=== PATIENT | male | born 1985 | race African-American/Black ===

== ENCOUNTER 2025-07-10 13:18 | Emergency (ER) | payer OTHER ==
--- NOTE | 2025-07-10 14:54 | RAD REPORT ---
EXAMINATION: XR LEFT KNEE CLINICAL INDICATION: PAIN TECHNIQUE: Multiple projections of the left knee were obtained. COMPARISON: No prior exam. FINDINGS: There is a large suprapatellar joint effusion. Moderate patellofemoral and medial compartme nt space narrowing is present with osteophytosis. No acute fracture or dislocation.
--- NOTE | 2025-07-10 15:04 | EDPHYS ---
Physician Documentation [facility] Name: Pedro Stallings Age: 39 yrs Sex: Male : 1985 Arrival Date: 07/10/2025 Time: 13:18 Bed 11 Private MD: ED Physician Zay Allen HPI: 07/10 15:04 This 39 yrs old Black Male presents to ER via Ambulatory with complaints of Knee Pain - kb SWELLING. 15:04 Patient is a 39-year-old male who presents for left knee pain and swelling that started kb 2 months ago. States he was carrying a heavy pipe and felt a pop in his knee 2 months ago. States has had intermittent swelling and pain since then. Denies any new injury or trauma.. Historical: - Allergies: 13:40 No Known Allergies; dd2 - PMHx: 13:40 None; dd2 - PSHx: 13:40 None; dd2 - Immunization history:: Adult Immunizations unknown. - Infectious Disease History:: Denies. - Social history:: Smoking status: Patient reports the use of cigarette tobacco products, cigars. ROS: 15:04 Constitutional: As per HPI kb Exam: 15:04 Constitutional: This is a well developed, well nourished patient who is awake, alert, kb and in no acute distress. Head/Face: Normocephalic, atraumatic. ENT: Moist Mucous membranes Respiratory: Respirations even and unlabored. No increased work of breathing. Talking in full sentences Skin: Warm, dry with normal turgor. Normal color. Neuro: Awake and alert, GCS 15, oriented to person, place, time, and situation. 15:04 Musculoskeletal/extremity: Extremities: grossly normal except: noted in the left knee: pain, swelling, tenderness, ROM: intact in all extremities, Circulation is intact in all extremities. Sensation intact. Weight bearing: able to fully bear weight, Vital Signs: 13:37 BP 129 / 74; Pulse 81; Resp 16; Temp 98; Pulse Ox 98% ; Weight 117.93 kg; Height 6 ft. dd2 0 in. ; Pain 8/10; 13:37 Body Mass Index 35.26 (117.93 kg, 182.88 cm) dd2 13:37 Pain Scale: Adult dd2 MDM: 13:30 Medical Screening Exam initiated kb 15:04 Differential diagnosis: fracture, sprain, strain. Data reviewed: vital signs, nurses kb notes. Independent interpretation of the following test(s) in the Emergency Department X-Ray: My interpretation is no acute fracture. Counseling: I had a detailed discussion with the patient and/or guardian regarding the historical points, exam findings, and any diagnostic results supporting the discharge/admit diagnosis, radiology results, the need for outpatient follow up, a orthopedic surgeon, to return to the emergency department if symptoms worsen or persist or if there are any questions or concerns that arise at home. 07/10 13:43 Order name: Knee Left 3 View XRAY; Complete Time: 14:56 kb Administered Medications: No medications were administered Disposition: 16:44 Co-signature as Attending Physician, Zay Allen MD I reviewed the patient's care rn provided by the Advanced Practice Provider and agree with the diagnosis and treatment plan. Disposition Summary: 07/10/25 15:03 Discharge Ordered Notes: Location: Home kb Condition: Stable kb Diagnosis - Pain in left knee kb - Effusion, knee kb Followup: kb - With: Emergency Department - When: As needed - Reason: Worsening of condition Followup: kb - With: Private Physician - When: 2 - 3 days - Reason: Recheck today's complaints, Continuance of care, Re-evaluation by your physician Discharge Instructions: - Discharge Summary Sheet kb - Knee Effusion, [id number] kb - Knee Sprain, Adult, [id number] kb Forms: - Medication Reconciliation Form kb - Antibiotic Education kb - Prescription Opioid Use kb - Patient Portal Instructions kb - Leadership Thank You Letter kb Prescriptions: - Ibuprofen 800 mg Oral Tablet - take 1 tablet ORAL route every 8 hours As needed take with food; 30 tablet; kb Refills: 0, Product Selection Permitted Signatures: Dispatcher [employer] EDMS Sharlene Moreira, BARREL STAVE INSPECTOR-C BARREL STAVE INSPECTOR-Zay Espino MD MD rn DAVIS, DIANA, RN RN dd2 Corrections: (The following items were deleted from the chart) 13:43 13:43 Knee Left 3 View+RAD.RAD.BRZ ordered. EDUT EDMS
--- NOTE | 2025-07-10 15:04 | ER ---
Nurse's Notes [facility] Name: Pedro Stallings Age: 39 yrs Sex: Male : 1985 Arrival Date: 07/10/2025 Time: 13:18 Bed 11 Private MD: Diagnosis: Pain in left knee;Effusion, knee Presentation: 07/10 13:37 Chief complaint: Patient states: LT KNEE PAIN AND SWELLING X 2 MONTHS. PT REPORTS dd2 HAPPENED AT WORK AND IS USING A KNEE WRAP. Coronavirus screen: At this time, the client does not indicate any symptoms associated with coronavirus-19. Ebola Screen: No symptoms or risks identified at this time. Initial Sepsis Screen: Does the patient meet any 2 criteria? No. Patient's initial sepsis screen is negative. Does the patient have a suspected source of infection? No. Patient's initial sepsis screen is negative. Risk Assessment: Do you want to hurt yourself or someone else? Patient reports no desire to harm self or others. Onset of symptoms is unknown. 13:37 Method Of Arrival: Ambulatory dd2 13:37 Acuity: BRENDA 3 dd2 Triage Assessment: 13:40 General: Appears in no apparent distress. uncomfortable, Behavior is calm, cooperative, dd2 appropriate for age. Pain: Complains of pain in left knee Pain currently is 8 out of 10 on a pain scale. Musculoskeletal: Circulation, motion, and sensation intact. Range of motion: intact in all extremities, Reports pain in left knee. Historical: - Allergies: 13:40 No Known Allergies; dd2 - PMHx: 13:40 None; dd2 - PSHx: 13:40 None; dd2 - Immunization history:: Adult Immunizations unknown. - Infectious Disease History:: Denies. - Social history:: Smoking status: Patient reports the use of cigarette tobacco products, cigars. Screenin:39 [facility] ED Fall Risk Assessment (Adult) History of falling in the last 3 months, jb4 including since admission No falls in past 3 months (0 pts) Confusion or Disorientation No (0 pts) Intoxicated or Sedated No (0 pts) Impaired Gait No (0 pts) Mobility Assist Device Used No (0 pt) Altered Elimination No (0 pt) Score/Fall Risk Level 0 - 2 = Low Risk Oriented to surroundings, Maintained a safe environment. Abuse screen: Denies threats or abuse. Nutritional screening: No deficits noted. Tuberculosis screening: No symptoms or risk factors identified. Assessment: 15:39 Reassessment: Patient appears in no apparent distress at this time. Patient and/or jb4 family updated on plan of care and expected duration. Pain level reassessed. Patient is alert, oriented x 3, equal unlabored respirations, skin warm/dry/pink. Vital Signs: 13:37 BP 129 / 74; Pulse 81; Resp 16; Temp 98; Pulse Ox 98% ; Weight 117.93 kg; Height 6 ft. dd2 0 in. ; Pain 8/10; 13:37 Body Mass Index 35.26 (117.93 kg, 182.88 cm) dd2 13:37 Pain Scale: Adult dd2 ED Course: 13:23 Patient arrived in ED. sj2 13:30 Sharlene Moreira FNP-C is [facility]. kb 13:30 Zay Allen MD is Attending Physician. kb 13:40 Triage completed. dd2 13:40 Arm band placed on right wrist. dd2 13:46 Hyacinth Armstrong, RN is Primary Nurse. ll1 14:50 Knee Left 3 View XRAY In Process Unspecified. EDMS 15:39 Patient has correct armband on for positive identification. Bed in low position. Call jb4 light in reach. Side rails up X 1. Provided Education on: discharge instructions.. 15:39 No provider procedures requiring assistance completed. Patient did not have IV access jb4 during this emergency room visit. Administered Medications: No medications were administered Medication: 15:39 VIS not applicable for this client. jb4 Outcome: 15:03 Discharge ordered by . kb 15:39 Discharged to home ambulatory, jb4 15:39 Condition: stable 15:39 Discharge instructions given to patient, Instructed on discharge instructions, follow up and referral plans. medication usage, Demonstrated understanding of instructions, follow-up care, medications, Prescriptions given X 1, 15:40 Patient left the ED. jb4 Signatures: Dispatcher [employer] EDMS Sharlene Moreira FNP-C FNP-Ckb Bryson, James, RN RN jb4 Hyacinth Armstrong RN RN ll1 ISATU WATKINS RN RN dd2 Madie Escobar 2
[2025-07-10 21:55] VITALS: BP 129/74; TEMP 98; O2SAT 98
== END 2025-07-10 15:40 | disposition home or self-care (01) ==
LOC: ER 13:18
DX: M25.462 Effusion, left knee (principal)
CPT/HCPCS: 99283